=== PATIENT | female | born 1955 | race Caucasian/White ===

== ENCOUNTER → 2017-01-10 | Outpatient (CLI) | payer BC | LOC: MC.RAD 14:12 | DX: Z12.31 Encounter for screening mammogram for malignant neoplasm of breast (principal) ==

== ENCOUNTER → 2018-05-24 | Outpatient (CLI) | payer OTHER | LOC: MC.RAD 09:45 | DX: Z12.31 Encounter for screening mammogram for malignant neoplasm of breast (principal) ==

== ENCOUNTER → 2019-11-17 | Outpatient (CLI) | payer OTHER | LOC: MC.RAD 10-28 14:30 | DX: Z12.31 Encounter for screening mammogram for malignant neoplasm of breast (principal) ==

== ENCOUNTER → 2021-05-31 | Outpatient (CLI) | payer OTHER | LOC: MC.RAD 13:54 | DX: Z12.31 Encounter for screening mammogram for malignant neoplasm of breast (principal) ==